=== PATIENT | female | born 1980 | race African-American/Black ===

== ENCOUNTER 2016-05-01 11:33 | Emergency (ER) | payer MEDICAID ==
[2016-05-01] MEDS ORDERED: FLUCONAZOLE 100 MG TABLET PO STA (16:11)
[2016-05-01] MEDS ORDERED: FLUCONAZOLE 100 MG TABLET ONE (16:22)
== END 2016-05-01 16:39 | disposition home or self-care (01) ==
DX: N76.0 Acute vaginitis (principal); F17.200 Nicotine dependence, unspecified, uncomplicated
CPT/HCPCS: 81003; 81025; 87210; 87220; 87491; 87591; 99283; A9270